=== PATIENT | male | born 1960 | race Caucasian/White ===

== ENCOUNTER 2018-05-09 20:38 | Inpatient (IN) | payer BC ==
[2018-05-10] MEDS ORDERED: ALBUTEROL/IPRATROPIUM (NEB) 3 ML AMP HHN
[2018-05-10] MEDS ORDERED: GLUCAGON 1 MG INJ IM
[2018-05-10] MEDS ORDERED: ONDANSETRON 4 MG INJ IV
[2018-05-10] MEDS ORDERED: DEXTROSE 50% 50 ML SYRINGE IV ×2
[2018-05-10] MEDS ORDERED: GLUCOSE GEL 15 GRAM TUBE PO ×2
[2018-05-10] MEDS ORDERED: GLUCOSE GEL 15 GRAM TUBE BUCCAL
[2018-05-10] MEDS: SOD CHLORIDE 0.9% 1,000 ML IV ×3 (00:05→21:51)
[2018-05-10] MEDS: ZOLPIDEM 5 MG TAB PO ×2 (00:34→21:54)
[2018-05-10 00:55] LABS: ADD MAN DIFF? NO
[2018-05-10 00:58] LABS: BASOPHILS % 0.2 % (0.0-2.0); EOSINOPHILS # 0.1 10^3/ul (0.0-0.5); EOSINOPHILS % 0.7 % (0.0-7.0); HEMATOCRIT 26.7 % (42.0-52.0); HEMOGLOBIN 8.1 g/dl (14.0-18.0); LYMPHOCYTES # 2.3 10^3/ul (0.8-2.9); LYMPHOCYTES % 21.6 % (15.0-51.0); MEAN CORPUSCULAR HGB CONC 30.3 g/dl (32.0-37.0); MEAN PLATELET VOLUME 9.5 fl (7.4-10.4); MONOCYTE # 0.7 10^3/ul (0.3-0.9); NEUTROPHIL # 7.3 10^3/ul (1.6-7.5); PLATELET COUNT 326 10^3/UL (140-415); RED BLOOD COUNT 3.38 10^6/ul (4.70-6.10); RED CELL DISTRIBUTION WIDTH 16.2 % (11.5-14.5)
[2018-05-10 00:58] LABS: WHITE BLOOD COUNT 10.5 10^3/ul (4.8-10.8)
[2018-05-10] MEDS: ACETAMINOPHEN 325 MG TAB PO (01:03)
[2018-05-10] MEDS: INSULIN ASPART [NOVOLOG] 3 ML PEN SC ×5 (01:05→21:56)
[2018-05-10 01:09] LABS: HEMOGLOBIN A1C 6.7 % (0-5.9)
[2018-05-10 01:20] LABS: ALANINE AMINOTRANSFERASE 17 IU/L (13-69); ALBUMIN 3.2 g/dl (3.3-4.9); ALBUMIN/GLOBULIN RATIO 1.03; ALKALINE PHOSPHATASE 81 IU/L (42-121); ANION GAP 8 (5-13); ASPARTATE AMINO TRANSFERASE 11 IU/L (15-46); BILIRUBIN,INDIRECT 0.1 mg/dl (0-1.1); BILIRUBIN,TOTAL 0.1 mg/dl (0.2-1.3); BLOOD UREA NITROGEN 16 mg/dl (7-20); CALCIUM 9.1 mg/dl (8.4-10.2); CARBON DIOXIDE 23 mmol/L (21-31); CHLORIDE 106 mmol/L (97-110); CHOL/HDL RATIO 7.6 RATIO; CHOLESTEROL 137 mg/dl (100-200); CREATININE 1.44 mg/dl (0.61-1.24); Estimated GFR 50 mL/min (>60); GLUCOSE 245 mg/dl (70-220); HDL CHOLESTEROL 18 mg/dl (30-78); LDL CHOLESTEROL,CALCULATED 92 mg/dl; POTASSIUM 5.1 mmol/L (3.5-5.1); SODIUM 137 mmol/L (135-144); TOTAL PROTEIN 6.3 g/dl (6.1-8.1); TRIGLYCERIDES 136 mg/dl (0-149)
[2018-05-10] MEDS: ACCU-CHEK XX (02:00)
[2018-05-10 02:02] LABS: CARCINOEMBRYONIC ANTIGEN 2.2 ng/ml (0.0-5.0)
[2018-05-10] MEDS: FAMOTIDINE 20 MG INJ IV ×2 (09:55→21:51)
[2018-05-10] MEDS: INSULIN GLARGINE [LANTus] (100 UNITS/ML) SYG SC (12:49)
[2018-05-11] MEDS: ACCU-CHEK XX (02:00)
[2018-05-11] MEDS: SOD CHLORIDE 0.9% 1,000 ML IV (05:29)
[2018-05-11] MEDS: INSULIN ASPART [NOVOLOG] 3 ML PEN SC ×6 (05:30→20:26)
[2018-05-11 06:20] LABS: ADD MAN DIFF? NO
[2018-05-11 06:28] LABS: WHITE BLOOD COUNT 10.1 10^3/ul (4.8-10.8)
[2018-05-11 06:28] LABS: BASOPHILS % 0.3 % (0.0-2.0); EOSINOPHILS # 0.1 10^3/ul (0.0-0.5); EOSINOPHILS % 1.4 % (0.0-7.0); HEMATOCRIT 26.6 % (42.0-52.0); HEMOGLOBIN 8.1 g/dl (14.0-18.0); LYMPHOCYTES # 2.2 10^3/ul (0.8-2.9); LYMPHOCYTES % 21.6 % (15.0-51.0); MEAN CORPUSCULAR HEMOGLOBIN 24.2 pg (29.0-33.0); MEAN CORPUSCULAR HGB CONC 30.5 g/dl (32.0-37.0); MEAN CORPUSCULAR VOLUME 79.4 fl (82.0-101.0); MEAN PLATELET VOLUME 10.2 fl (7.4-10.4); MONOCYTE # 0.8 10^3/ul (0.3-0.9); NEUTROPHIL # 6.9 10^3/ul (1.6-7.5); NEUTROPHILS % 68.2 % (39.0-77.0); PLATELET COUNT 345 10^3/UL (140-415); RED BLOOD COUNT 3.35 10^6/ul (4.70-6.10); RED CELL DISTRIBUTION WIDTH 15.9 % (11.5-14.5)
[2018-05-11] MEDS: FAMOTIDINE 20 MG INJ IV ×2 (07:34→20:27)
[2018-05-11 07:35] LABS: ANION GAP 7 (5-13); BLOOD UREA NITROGEN 13 mg/dl (7-20); CALCIUM 9.2 mg/dl (8.4-10.2); CARBON DIOXIDE 24 mmol/L (21-31); CHLORIDE 108 mmol/L (97-110); CREATININE 1.24 mg/dl (0.61-1.24); Estimated GFR 60 mL/min (>60); GLUCOSE 97 mg/dl (70-220); MAGNESIUM 1.8 mg/dl (1.7-2.5); PHOSPHORUS 4.4 mg/dl (2.5-4.9); POTASSIUM 3.8 mmol/L (3.5-5.1); SODIUM 139 mmol/L (135-144)
[2018-05-11] MEDS: INSULIN GLARGINE [LANTus] (100 UNITS/ML) SYG SC (07:42)
[2018-05-11] MEDS ORDERED: INSULIN GLARGINE [LANTus] (100 UNITS/ML) SYG SC (08:00)
[2018-05-11] MEDS: BISACODYL (EC) 5 MG TAB PO (14:39)
[2018-05-11] MEDS: MAGNESIUM CITRATE 300 ML BTL PO (17:00)
[2018-05-11] MEDS ORDERED: INSULIN ASPART [NOVOLOG] 3 ML PEN SC (18:00)
[2018-05-11] MEDS: POLYETHYLENE GLYCOL 3350 119 GM POWDER PO (18:44)
[2018-05-12] MEDS: ZOLPIDEM 5 MG TAB PO (00:44)
[2018-05-12] MEDS: ACCU-CHEK XX (02:00)
[2018-05-12] MEDS: POLYETHYLENE GLYCOL 3350 119 GM POWDER PO (05:50)
[2018-05-12 07:06] LABS: ANION GAP 8 (5-13); BLOOD UREA NITROGEN 11 mg/dl (7-20); CALCIUM 9.2 mg/dl (8.4-10.2); CARBON DIOXIDE 24 mmol/L (21-31); CHLORIDE 107 mmol/L (97-110); Estimated GFR > 60 mL/min (>60); GLUCOSE 159 mg/dl (70-220); POTASSIUM 4.4 mmol/L (3.5-5.1); SODIUM 139 mmol/L (135-144)
[2018-05-12] MEDS: BISACODYL (EC) 5 MG TAB PO (07:55)
[2018-05-12] MEDS: INSULIN GLARGINE [LANTus] (100 UNITS/ML) SYG SC (08:00)
[2018-05-12] MEDS: INSULIN ASPART [NOVOLOG] 3 ML PEN SC ×4 (08:04→20:35)
[2018-05-12] MEDS: FAMOTIDINE 20 MG INJ IV ×2 (08:41→20:17)
[2018-05-12] MEDS ORDERED: ONDANSETRON 4 MG INJ IV (15:30)
[2018-05-12] MEDS ORDERED: HYDROmorphONE 1 MG/5 ML IV SYRINGE IV (15:30)
[2018-05-12] MEDS ORDERED: EPHEDrine SULFATE 50 MG/5 ML SYG IV (16:30)
[2018-05-12] MEDS: ACETAMINOPHEN 325 MG TAB PO (17:56)
[2018-05-12] MEDS: HYDROmorphONE 1 MG/ML SYG IV (18:55)
[2018-05-13] MEDS: ZOLPIDEM 5 MG TAB PO (00:58)
[2018-05-13] MEDS: ACCU-CHEK XX (03:20)
[2018-05-13] MEDS: HYDROmorphONE 1 MG/ML SYG IV (03:27)
[2018-05-13] MEDS: INSULIN ASPART [NOVOLOG] 3 ML PEN SC ×4 (07:59→20:52)
[2018-05-13] MEDS: FAMOTIDINE 20 MG INJ IV (08:04)
[2018-05-13] MEDS: INSULIN GLARGINE [LANTus] (100 UNITS/ML) SYG SC (08:07)
[2018-05-13 10:07] LABS: ADD MAN DIFF? NO
[2018-05-13 10:10] LABS: WHITE BLOOD COUNT 8.6 10^3/ul (4.8-10.8)
[2018-05-13 10:10] LABS: BASOPHILS % 0.1 % (0.0-2.0); EOSINOPHILS # 0.1 10^3/ul (0.0-0.5); HEMATOCRIT 26.5 % (42.0-52.0); HEMOGLOBIN 8.2 g/dl (14.0-18.0); LYMPHOCYTES # 1.5 10^3/ul (0.8-2.9); LYMPHOCYTES % 16.8 % (15.0-51.0); MEAN CORPUSCULAR HEMOGLOBIN 23.8 pg (29.0-33.0); MEAN CORPUSCULAR HGB CONC 30.9 g/dl (32.0-37.0); MEAN PLATELET VOLUME 9.8 fl (7.4-10.4); MONOCYTE # 0.6 10^3/ul (0.3-0.9); MONOCYTES % 6.5 % (0.0-11.0); NEUTROPHIL # 6.5 10^3/ul (1.6-7.5); NEUTROPHILS % 75.3 % (39.0-77.0); PLATELET COUNT 333 10^3/UL (140-415); RED BLOOD COUNT 3.44 10^6/ul (4.70-6.10); RED CELL DISTRIBUTION WIDTH 15.9 % (11.5-14.5)
[2018-05-13 10:25] LABS: IRON 26 ug/dl (35-150)
[2018-05-13 10:27] LABS: ANION GAP 10 (5-13); BLOOD UREA NITROGEN 10 mg/dl (7-20); CARBON DIOXIDE 23 mmol/L (21-31); CHLORIDE 106 mmol/L (97-110); CREATININE 1.27 mg/dl (0.61-1.24); Estimated GFR 58 mL/min (>60); GLUCOSE 128 mg/dl (70-220); POTASSIUM 4.3 mmol/L (3.5-5.1); SODIUM 139 mmol/L (135-144)
[2018-05-13 10:35] LABS: % IRON SATURATION 9 % SAT (22-52); TOTAL IRON BINDING CAPACITY 278 ug/dl (241-421)
[2018-05-13 11:02] LABS: FERRITIN 86.5 ng/ml (11.1-264.0)
[2018-05-13] MEDS: SOD FERRIC GLUC COMPLX 125 MG in SOD CHLORIDE 0.9% 100 ML IVPB (12:44)
[2018-05-13] MEDS: FAMOTIDINE 20 MG TAB PO (20:49)
[2018-05-14] MEDS: ACCU-CHEK XX (02:00)
[2018-05-14] MEDS: ZOLPIDEM 5 MG TAB PO (02:15)
[2018-05-14] MEDS: PROPOFOL 40 ML (04:27)
[2018-05-14] MEDS: INSULIN ASPART [NOVOLOG] 3 ML PEN SC ×6 (04:28→20:57)
[2018-05-14] MEDS: LIDOCAINE 2% (SDV) 5 ML INJ (04:28)
[2018-05-14] MEDS: EPHEDrine 25 MG/5 ML SYG (04:29)
[2018-05-14] MEDS: PHENYLephrine (100 MCG/ML) 10ML SYG (04:29)
[2018-05-14] MEDS: FAMOTIDINE 20 MG TAB PO ×2 (08:07→20:53)
[2018-05-14] MEDS: INSULIN GLARGINE [LANTus] (100 UNITS/ML) SYG SC (08:40)
[2018-05-14] MEDS: SOD FERRIC GLUC COMPLX 125 MG in SOD CHLORIDE 0.9% 100 ML IVPB (13:56)
[2018-05-14] MEDS: BARIUM SULF 2% 450 ML BTL (BERRY SMOOTHIE) PO (16:00)
[2018-05-14] MEDS: IODIXANOL LOCM 100 ML BTL (17:23)
[2018-05-14] MEDS: SOD CHLORIDE 0.9% 100 ML (17:23)
[2018-05-15] MEDS: ACCU-CHEK XX (02:00)
[2018-05-15] MEDS: ZOLPIDEM 5 MG TAB PO ×2 (02:14→23:57)
[2018-05-15] MEDS: FAMOTIDINE 20 MG TAB PO ×2 (08:22→20:35)
[2018-05-15] MEDS: INSULIN ASPART [NOVOLOG] 3 ML PEN SC ×5 (08:25→20:37)
[2018-05-15] MEDS: INSULIN GLARGINE [LANTus] (100 UNITS/ML) SYG SC (08:26)
[2018-05-15] MEDS: SOD CHLORIDE 0.9% 100 ML (11:02)
[2018-05-15] MEDS: IODIXANOL LOCM 100 ML BTL (11:02)
[2018-05-15] MEDS: SOD FERRIC GLUC COMPLX 125 MG in SOD CHLORIDE 0.9% 100 ML IVPB (12:22)
[2018-05-16] MEDS: INSULIN ASPART [NOVOLOG] 3 ML PEN SC ×7 (07:59→21:00)
[2018-05-16] MEDS: INSULIN GLARGINE [LANTus] (100 UNITS/ML) SYG SC (08:00)
[2018-05-16] MEDS: FAMOTIDINE 20 MG TAB PO ×2 (08:01→21:14)
[2018-05-16] MEDS: HYDROmorphONE 1 MG/ML SYG IV (08:06)
[2018-05-16] MEDS: SOD FERRIC GLUC COMPLX 125 MG in SOD CHLORIDE 0.9% 100 ML IVPB (14:02)
[2018-05-16] MEDS: HYDROmorphONE 1 MG/ML SYG IM (21:15)
[2018-05-16] MEDS: ZOLPIDEM 5 MG TAB PO (23:53)
[2018-05-17] MEDS: INSULIN GLARGINE [LANTus] (100 UNITS/ML) SYG SC (08:46)
[2018-05-17] MEDS: FAMOTIDINE 20 MG TAB PO ×2 (08:47→20:32)
[2018-05-17] MEDS: INSULIN ASPART [NOVOLOG] 3 ML PEN SC ×7 (08:47→20:32)
[2018-05-17] MEDS: SOD FERRIC GLUC COMPLX 125 MG in SOD CHLORIDE 0.9% 100 ML IVPB (13:39)
[2018-05-17] MEDS: HYDROmorphONE 1 MG/ML SYG IV ×2 (13:41→20:38)
[2018-05-18] MEDS: ZOLPIDEM 5 MG TAB PO (00:14)
[2018-05-18] MEDS: INSULIN ASPART [NOVOLOG] 3 ML PEN SC ×7 (08:20→21:00)
[2018-05-18] MEDS: FAMOTIDINE 20 MG TAB PO ×2 (08:22→20:54)
[2018-05-18] MEDS: INSULIN GLARGINE [LANTus] (100 UNITS/ML) SYG SC (08:22)
[2018-05-18] MEDS: HYDROmorphONE 1 MG/ML SYG IV ×2 (11:08→18:02)
[2018-05-18 19:39] LABS: TROPONIN-I < 0.012 ng/ml (0.000-0.120)
[2018-05-19] MEDS: HYDROmorphONE 1 MG/ML SYG IV ×4 (00:08→22:34)
[2018-05-19] MEDS: ZOLPIDEM 5 MG TAB PO (00:08)
[2018-05-19 01:41] LABS: TROPONIN-I < 0.012 ng/ml (0.000-0.120)
[2018-05-19 05:59] LABS: ADD MAN DIFF? NO
[2018-05-19 06:05] LABS: BASOPHILS % 0.3 % (0.0-2.0); EOSINOPHILS # 0.2 10^3/ul (0.0-0.5); EOSINOPHILS % 2.5 % (0.0-7.0); HEMATOCRIT 27.5 % (42.0-52.0); HEMOGLOBIN 8.5 g/dl (14.0-18.0); LYMPHOCYTES % 28.7 % (15.0-51.0); MEAN CORPUSCULAR HEMOGLOBIN 24.6 pg (29.0-33.0); MEAN CORPUSCULAR HGB CONC 30.9 g/dl (32.0-37.0); MEAN CORPUSCULAR VOLUME 79.7 fl (82.0-101.0); MEAN PLATELET VOLUME 10.2 fl (7.4-10.4); MONOCYTE # 0.5 10^3/ul (0.3-0.9); MONOCYTES % 7.6 % (0.0-11.0); NEUTROPHIL # 4.3 10^3/ul (1.6-7.5); NEUTROPHILS % 60.3 % (39.0-77.0); PLATELET COUNT 338 10^3/UL (140-415); RED BLOOD COUNT 3.45 10^6/ul (4.70-6.10); RED CELL DISTRIBUTION WIDTH 16.5 % (11.5-14.5)
[2018-05-19 06:05] LABS: WHITE BLOOD COUNT 7.1 10^3/ul (4.8-10.8)
[2018-05-19 06:37] LABS: CHOLESTEROL 141 mg/dl (100-200)
[2018-05-19 06:37] LABS: CHOL/HDL RATIO 6.4 RATIO; HDL CHOLESTEROL 22 mg/dl (30-78); LDL CHOLESTEROL,CALCULATED 85 mg/dl; TRIGLYCERIDES 171 mg/dl (0-149)
[2018-05-19 06:41] LABS: ANION GAP 10 (5-13); BLOOD UREA NITROGEN 14 mg/dl (7-20); CALCIUM 9.4 mg/dl (8.4-10.2); CARBON DIOXIDE 26 mmol/L (21-31); CHLORIDE 102 mmol/L (97-110); CREATININE 1.14 mg/dl (0.61-1.24); Estimated GFR > 60 mL/min (>60); GLUCOSE 217 mg/dl (70-220); POTASSIUM 4.6 mmol/L (3.5-5.1); SODIUM 138 mmol/L (135-144)
[2018-05-19 06:48] LABS: TROPONIN-I < 0.012 ng/ml (0.000-0.120)
[2018-05-19] MEDS: INSULIN ASPART [NOVOLOG] 3 ML PEN SC ×7 (08:00→20:41)
[2018-05-19] MEDS: FAMOTIDINE 20 MG TAB PO ×2 (08:17→20:39)
[2018-05-19] MEDS: INSULIN GLARGINE [LANTus] (100 UNITS/ML) SYG SC (08:22)
[2018-05-19] MEDS: REGADENOSON 0.4 MG/5 ML SYG (12:16)
[2018-05-19] MEDS: HYDROCODONE/APAP (5/325) TAB PO (16:35)
[2018-05-19] MEDS: PEG/ELECTROLYTES 4L BTL PO (17:58)
[2018-05-20] MEDS: ZOLPIDEM 5 MG TAB PO (01:14)
[2018-05-20] MEDS ORDERED: ROCURONIUM 50 MG INJ ×2 (07:00→15:32)
[2018-05-20] MEDS ORDERED: SEVOFLURANE 15 MIN (07:00)
[2018-05-20] MEDS ORDERED: EPHEDrine SULFATE 50 MG/5 ML SYG (07:00)
[2018-05-20] MEDS: FAMOTIDINE 20 MG TAB PO ×2 (07:47→21:00)
[2018-05-20] MEDS: INSULIN GLARGINE [LANTus] (100 UNITS/ML) SYG SC (08:00)
[2018-05-20] MEDS: INSULIN ASPART [NOVOLOG] 3 ML PEN SC ×7 (08:00→21:00)
[2018-05-20] MEDS: HYDROmorphONE 1 MG/ML SYG IV ×2 (09:30→14:16)
[2018-05-20] MEDS: SOD CHLORIDE 0.9% 1,000 ML IV ×2 (10:13→20:00)
[2018-05-20] MEDS ORDERED: FENTAnyl 50 MCG/ML VIAL (15:32)
[2018-05-20] MEDS ORDERED: PROPOFOL 20 ML (15:32)
[2018-05-20] MEDS ORDERED: MIDAZOLAM 1 MG/ML 2 ML INJ (15:32)
[2018-05-20 15:56] LABS: PLATELET COUNT 339 10^3/UL (140-415)
[2018-05-20] MEDS: CEFAZOLIN 1 GM INJ (16:06)
[2018-05-20] MEDS ORDERED: PHENYLephrine (100 MCG/ML) 5ML SYG (16:25)
[2018-05-20] MEDS: LIDOCAINE 1% (MPF) 30 ML INJ (17:01)
[2018-05-20] MEDS: BUPIVACAINE 0.5%/EPI (SDV) 30 ML INJ (17:01)
[2018-05-20] MEDS ORDERED: ROPIVACAINE 0.2% 20 ML VIAL (17:09)
[2018-05-20 17:11] LABS: IMMEDIATE SPIN CROSSMATCH 1 4
[2018-05-20] MEDS ORDERED: metroNIDAZOLE 500 MG/NS (PMX) 100 ML IVPB (17:26)
[2018-05-20 18:17] LABS: INR 1.04; PROTIME 13.7 Sec (11.9-14.9); PT RATIO 1.1
[2018-05-20 18:18] LABS: PARTIAL THROMBOPLASTIN TIME 38.2 Sec (23.0-35.0); THROMBIN TIME 14.2 SEC (13.8-19.1)
[2018-05-20] MEDS: metroNIDAZOLE 500 MG/NS (PMX) 100 ML IVPB (18:30)
[2018-05-20] MEDS ORDERED: ACETAMINOPHEN 325 MG TAB PO (18:30)
[2018-05-20] MEDS: CEFAZOLIN 2 GM/50 ML (PMX) 50 ML IVPB (18:30)
[2018-05-20] MEDS ORDERED: morphine 2 MG INJ IV ×5 (18:30→21:00)
[2018-05-20] MEDS ORDERED: morphine SULFATE/PF (10 MG/10 ML) INJ (18:46)
[2018-05-20] MEDS ORDERED: HYDROmorphONE 0.5 MG/0.5 ML SYG IV ×4 (19:00→21:00)
[2018-05-20] MEDS ORDERED: NALOXONE (0.4 MG/ML) INJ IV ×2 (19:00→21:00)
[2018-05-20] MEDS ORDERED: NALBUPHINE HCL (10 MG/1 ML) INJ IV ×2 (19:00→21:00)
[2018-05-20] MEDS ORDERED: DIPHENHYDRAMINE 50 MG INJ IV ×3 (19:00→21:00)
[2018-05-20] MEDS ORDERED: ONDANSETRON 4 MG INJ IV ×3 (19:00→21:00)
[2018-05-20 19:19] LABS: AADO2 Arterial 474.9 mmHg (7.0-24.0); Arterial Base Excess -5.3 mmol/L (-3.0-3); Arterial Blood Gas Oxygen Sat 98.9 mmHG (95.0-98.0); Arterial COHb 0.2 % (0.0-3.0); Arterial Fraction of Oxyhgb 98.5 % (93.0-99.0); Arterial HCO3 20.8 mmol/L (22.0-26.0); Arterial MetHb 0.2 % (0.0-1.5); Arterial pCO2 42.5 mmhg (35-45); MODE VENT - AC; Site A-Line
[2018-05-20] MEDS ORDERED: ALBUMIN HUMAN 5% 250 ML ×2 (19:52→20:23)
[2018-05-20] MEDS ORDERED: KETOROLAC 30 MG INJ IV (21:00)
[2018-05-20] MEDS ORDERED: FENTAnyl 50 MCG/ML VIAL IV ×3 (21:00)
[2018-05-20] MEDS ORDERED: LABETALOL HCL 20MG INJ IV (21:00)
[2018-05-20] MEDS ORDERED: ALBUMIN HUMAN 5% 250 ML IV (21:00)
[2018-05-20] MEDS ORDERED: ZOLPIDEM 5 MG TAB PO (21:00)
[2018-05-20] MEDS ORDERED: KETOROLAC 15 MG INJ IV (21:00)
[2018-05-20] MEDS ORDERED: TRIMETHOBENZAMIDE 100 MG/ML VIAL IM (21:00)
[2018-05-20] MEDS ORDERED: HYDROmorphONE 1 MG/5 ML IV SYRINGE IV ×3 (21:00)
[2018-05-20] MEDS ORDERED: ACETAMINOPHEN 500 MG TAB PO (21:00)
[2018-05-20] MEDS ORDERED: EPHEDrine SULFATE 50 MG/5 ML SYG IV (21:00)
[2018-05-20] MEDS ORDERED: METOCLOPRAMIDE 10 MG INJ IV (21:00)
[2018-05-20] MEDS ORDERED: MEPERIDINE 25 MG INJ IV (21:00)
[2018-05-20] MEDS ORDERED: HYDROCODONE/APAP (5/325) TAB PO (21:00)
[2018-05-20] MEDS ORDERED: METOCLOPRAMIDE 10 MG INJ (21:11)
[2018-05-20] MEDS ORDERED: SUGAMMADEX SODIUM 200 MG/2 ML VIAL IV (21:11)
[2018-05-20] MEDS ORDERED: ONDANSETRON 4 MG INJ (21:11)
[2018-05-20] MEDS ORDERED: DEXAMETHASONE 4 MG/ML 5 ML INJ (21:11)
[2018-05-20] MEDS ORDERED: ROPIVACAINE 0.5 % 30 ML VIAL (21:20)
[2018-05-20] MEDS: FENTAnyl 2MCG/ML-ROPIV 0.2% 100 ML BAG EPI (23:07)
[2018-05-21 00:03] LABS: ADD UMIC NO; UR ASCORBIC ACID NEGATIVE (NEGATIVE); UR BILIRUBIN (Dip) NEGATIVE (NEGATIVE); UR BLOOD (Dip) NEGATIVE (NEGATIVE); UR CLARITY CLEAR (CLEAR); UR COLOR STRAW (YELLOW); UR GLUCOSE (Dip) 1+ mg/dL (NEGATIVE); UR KETONES (Dip) NEGATIVE (NEGATIVE); UR LEUKOCYTE ESTERASE (Dip) NEGATIVE Leu/ul (NEGATIVE); UR NITRITE (Dip) NEGATIVE (NEGATIVE); UR SPECIFIC GRAVITY (Dip) 1.008 (1.003-1.030); UR TOTAL PROTEIN (Dip) NEGATIVE (NEGATIVE); UR UROBILINOGEN (Dip) NEGATIVE (NEGATIVE)
[2018-05-21] MEDS: SOD CHLORIDE 0.9% 1,000 ML IV ×2 (00:38→12:28)
[2018-05-21] MEDS: INSULIN ASPART [NOVOLOG] 3 ML PEN SC ×9 (01:08→21:00)
[2018-05-21] MEDS: CEFAZOLIN 2 GM/50 ML (PMX) 50 ML IVPB ×2 (01:09→10:03)
[2018-05-21] MEDS: ONDANSETRON 4 MG INJ IV ×2 (01:31→18:58)
[2018-05-21] MEDS: metroNIDAZOLE 500 MG/NS (PMX) 100 ML IVPB ×2 (01:42→12:25)
[2018-05-21 06:04] LABS: ADD MAN DIFF? NO
[2018-05-21 06:09] LABS: WHITE BLOOD COUNT 10.7 10^3/ul (4.8-10.8)
[2018-05-21 06:09] LABS: BASOPHILS % 0.1 % (0.0-2.0); HEMATOCRIT 32.9 % (42.0-52.0); HEMOGLOBIN 10.1 g/dl (14.0-18.0); LYMPHOCYTES # 0.7 10^3/ul (0.8-2.9); LYMPHOCYTES % 6.1 % (15.0-51.0); MEAN CORPUSCULAR HEMOGLOBIN 24.9 pg (29.0-33.0); MEAN CORPUSCULAR HGB CONC 30.7 g/dl (32.0-37.0); MEAN PLATELET VOLUME 10.3 fl (7.4-10.4); MONOCYTE # 0.3 10^3/ul (0.3-0.9); MONOCYTES % 2.3 % (0.0-11.0); NEUTROPHIL # 9.7 10^3/ul (1.6-7.5); PLATELET COUNT 313 10^3/UL (140-415); RED BLOOD COUNT 4.06 10^6/ul (4.70-6.10); RED CELL DISTRIBUTION WIDTH 16.5 % (11.5-14.5)
[2018-05-21 06:48] LABS: ANION GAP 12 (5-13); BLOOD UREA NITROGEN 13 mg/dl (7-20); CALCIUM 8.2 mg/dl (8.4-10.2); CARBON DIOXIDE 21 mmol/L (21-31); CHLORIDE 103 mmol/L (97-110); CREATININE 1.01 mg/dl (0.61-1.24); Estimated GFR > 60 mL/min (>60); GLUCOSE 266 mg/dl (70-220); POTASSIUM 4.8 mmol/L (3.5-5.1); SODIUM 136 mmol/L (135-144)
[2018-05-21] MEDS: CELECOXIB 200 MG CAP PO (09:00)
[2018-05-21] MEDS: FAMOTIDINE 20 MG INJ IV (09:43)
[2018-05-21] MEDS: INSULIN GLARGINE [LANTus] (100 UNITS/ML) SYG SC (09:47)
[2018-05-21] MEDS: FENTAnyl 2MCG/ML-ROPIV 0.2% 100 ML BAG EPI ×2 (10:03→21:36)
[2018-05-21] MEDS: PHENOL 1.4% SOLN 180 ML BTL MT (19:36)
[2018-05-21] MEDS: HYDROmorphONE 1 MG/ML SYG IV (22:23)
[2018-05-22] MEDS: SOD CHLORIDE 0.9% 1,000 ML IV ×2 (00:36→10:17)
[2018-05-22] MEDS: INSULIN ASPART [NOVOLOG] 3 ML PEN SC ×9 (00:36→20:37)
[2018-05-22] MEDS: HYDROmorphONE 1 MG/ML SYG IV (05:09)
[2018-05-22] MEDS: CELECOXIB 200 MG CAP PO (07:58)
[2018-05-22] MEDS: FAMOTIDINE 20 MG INJ IV (08:18)
[2018-05-22] MEDS: HYDROmorphONE 0.5 MG/0.5 ML SYG IV ×3 (08:45→17:38)
[2018-05-22] MEDS ORDERED: FENTAnyl 2MCG/ML-ROPIV 0.2% 100 ML BAG EPI (10:30)
[2018-05-22] MEDS ORDERED: NALOXONE (0.4 MG/ML) INJ IV (10:30)
[2018-05-22] MEDS: FENTAnyl 2MCG/ML-ROPIV 0.2% 100 ML BAG EPI ×2 (10:53→21:17)
[2018-05-22] MEDS: ONDANSETRON 4 MG INJ IV (12:08)
[2018-05-22] MEDS: INSULIN GLARGINE [LANTus] (100 UNITS/ML) SYG SC (12:35)
[2018-05-23] MEDS: HYDROmorphONE 0.5 MG/0.5 ML SYG IV (00:06)
[2018-05-23] MEDS: INSULIN ASPART [NOVOLOG] 3 ML PEN SC ×9 (01:00→21:00)
[2018-05-23] MEDS: SOD CHLORIDE 0.9% 1,000 ML IV ×2 (03:11→21:26)
[2018-05-23 04:59] LABS: ADD MAN DIFF? NO
[2018-05-23 05:06] LABS: BASOPHILS % 0.2 % (0.0-2.0); EOSINOPHILS # 0.1 10^3/ul (0.0-0.5); HEMATOCRIT 29.7 % (42.0-52.0); HEMOGLOBIN 9.3 g/dl (14.0-18.0); LYMPHOCYTES % 22.8 % (15.0-51.0); MEAN CORPUSCULAR HEMOGLOBIN 25.2 pg (29.0-33.0); MEAN CORPUSCULAR HGB CONC 31.3 g/dl (32.0-37.0); MEAN CORPUSCULAR VOLUME 80.5 fl (82.0-101.0); MEAN PLATELET VOLUME 10.1 fl (7.4-10.4); MONOCYTE # 0.4 10^3/ul (0.3-0.9); NEUTROPHIL # 6.2 10^3/ul (1.6-7.5); NEUTROPHILS % 70.3 % (39.0-77.0); PLATELET COUNT 291 10^3/UL (140-415); RED BLOOD COUNT 3.69 10^6/ul (4.70-6.10); RED CELL DISTRIBUTION WIDTH 16.8 % (11.5-14.5)
[2018-05-23 05:06] LABS: WHITE BLOOD COUNT 8.8 10^3/ul (4.8-10.8)
[2018-05-23 05:18] LABS: ANION GAP 9 (5-13); BLOOD UREA NITROGEN 11 mg/dl (7-20); CALCIUM 8.7 mg/dl (8.4-10.2); CARBON DIOXIDE 23 mmol/L (21-31); CHLORIDE 106 mmol/L (97-110); CREATININE 1.07 mg/dl (0.61-1.24); Estimated GFR > 60 mL/min (>60); GLUCOSE 95 mg/dl (70-220); SODIUM 138 mmol/L (135-144)
[2018-05-23] MEDS: FENTAnyl 2MCG/ML-ROPIV 0.2% 100 ML BAG EPI ×2 (07:48→18:57)
[2018-05-23] MEDS: CELECOXIB 200 MG CAP PO (07:57)
[2018-05-23] MEDS: INSULIN GLARGINE [LANTus] (100 UNITS/ML) SYG SC (09:42)
[2018-05-23] MEDS: ZOLPIDEM 5 MG TAB PO (21:25)
[2018-05-23] MEDS: ONDANSETRON 4 MG INJ IV ×2 (23:42→23:50)
[2018-05-23] MEDS: PHENOL 1.4% SOLN 180 ML BTL MT (23:50)
[2018-05-24] MEDS: HYDROmorphONE 1 MG/ML SYG IV ×5 (00:44→23:08)
[2018-05-24] MEDS: INSULIN ASPART [NOVOLOG] 3 ML PEN SC ×9 (01:00→21:00)
[2018-05-24] MEDS: FENTAnyl 2MCG/ML-ROPIV 0.2% 100 ML BAG EPI ×3 (02:41→19:59)
[2018-05-24] MEDS: ONDANSETRON 4 MG INJ IV ×2 (05:41→17:40)
[2018-05-24] MEDS: SOD CHLORIDE 0.9% 1,000 ML IV (17:32)
[2018-05-24] MEDS: PHENOL 1.4% SOLN 180 ML BTL MT (21:48)
[2018-05-24] MEDS: ZOLPIDEM 5 MG TAB PO (22:03)
[2018-05-25] MEDS: INSULIN ASPART [NOVOLOG] 3 ML PEN SC ×8 (01:00→21:00)
[2018-05-25] MEDS: HYDROmorphONE 1 MG/ML SYG IV ×5 (03:46→23:11)
[2018-05-25] MEDS: FENTAnyl 2MCG/ML-ROPIV 0.2% 100 ML BAG EPI ×3 (05:14→22:09)
[2018-05-25 05:22] LABS: ADD MAN DIFF? NO
[2018-05-25 05:43] LABS: BASOPHILS % 0.2 % (0.0-2.0); EOSINOPHILS # 0.2 10^3/ul (0.0-0.5); EOSINOPHILS % 2.2 % (0.0-7.0); HEMATOCRIT 33.1 % (42.0-52.0); HEMOGLOBIN 10.1 g/dl (14.0-18.0); LYMPHOCYTES # 2.1 10^3/ul (0.8-2.9); LYMPHOCYTES % 25.9 % (15.0-51.0); MEAN CORPUSCULAR HEMOGLOBIN 24.9 pg (29.0-33.0); MEAN CORPUSCULAR HGB CONC 30.5 g/dl (32.0-37.0); MEAN CORPUSCULAR VOLUME 81.7 fl (82.0-101.0); MEAN PLATELET VOLUME 9.7 fl (7.4-10.4); MONOCYTE # 0.5 10^3/ul (0.3-0.9); MONOCYTES % 5.6 % (0.0-11.0); NEUTROPHIL # 5.2 10^3/ul (1.6-7.5); NEUTROPHILS % 65.4 % (39.0-77.0); PLATELET COUNT 354 10^3/UL (140-415); RED BLOOD COUNT 4.05 10^6/ul (4.70-6.10); RED CELL DISTRIBUTION WIDTH 16.8 % (11.5-14.5)
[2018-05-25] MEDS: ONDANSETRON 4 MG INJ IV ×2 (06:14→12:38)
[2018-05-25 06:37] LABS: ALANINE AMINOTRANSFERASE 10 IU/L (13-69); ALBUMIN 3.3 g/dl (3.3-4.9); ALKALINE PHOSPHATASE 76 IU/L (42-121); ANION GAP 14 (5-13); ASPARTATE AMINO TRANSFERASE 14 IU/L (15-46); BILIRUBIN,INDIRECT 0.1 mg/dl (0-1.1); BILIRUBIN,TOTAL 0.1 mg/dl (0.2-1.3); BLOOD UREA NITROGEN 11 mg/dl (7-20); CALCIUM 9.1 mg/dl (8.4-10.2); CARBON DIOXIDE 19 mmol/L (21-31); CHLORIDE 104 mmol/L (97-110); CREATININE 0.91 mg/dl (0.61-1.24); Estimated GFR > 60 mL/min (>60); GLUCOSE 103 mg/dl (70-220); POTASSIUM 4.3 mmol/L (3.5-5.1); SODIUM 137 mmol/L (135-144); TOTAL PROTEIN 6.6 g/dl (6.1-8.1)
[2018-05-25 06:41] LABS: MAGNESIUM 1.6 mg/dl (1.7-2.5)
[2018-05-25 06:41] LABS: PHOSPHORUS 4.1 mg/dl (2.5-4.9)
[2018-05-25] MEDS: INSULIN GLARGINE [LANTus] (100 UNITS/ML) SYG SC (08:00)
[2018-05-25] MEDS: MAGNESIUM SULFATE 2 GM/50 ML 50 ML IVPB (12:01)
[2018-05-25] MEDS: DIATR MEGLU/DIATRIZOATE SODIUM 120 ML BTL (15:16)
[2018-05-25] MEDS: SOD CHLORIDE 0.9% 1,000 ML IV (21:14)
[2018-05-25] MEDS: ZOLPIDEM 5 MG TAB PO (23:21)
[2018-05-26] MEDS: INSULIN ASPART [NOVOLOG] 3 ML PEN SC ×6 (01:00→21:00)
[2018-05-26] MEDS: HYDROmorphONE 1 MG/ML SYG IV ×3 (03:12→10:56)
[2018-05-26] MEDS: FENTAnyl 2MCG/ML-ROPIV 0.2% 100 ML BAG EPI (05:04)
[2018-05-26 05:18] LABS: ADD MAN DIFF? NO
[2018-05-26 05:27] LABS: BASOPHILS % 0.3 % (0.0-2.0); EOSINOPHILS # 0.2 10^3/ul (0.0-0.5); EOSINOPHILS % 1.8 % (0.0-7.0); HEMATOCRIT 33.1 % (42.0-52.0); HEMOGLOBIN 10.2 g/dl (14.0-18.0); LYMPHOCYTES # 1.7 10^3/ul (0.8-2.9); LYMPHOCYTES % 18.6 % (15.0-51.0); MEAN CORPUSCULAR HEMOGLOBIN 24.9 pg (29.0-33.0); MEAN CORPUSCULAR HGB CONC 30.8 g/dl (32.0-37.0); MEAN CORPUSCULAR VOLUME 80.7 fl (82.0-101.0); MEAN PLATELET VOLUME 9.6 fl (7.4-10.4); MONOCYTE # 0.6 10^3/ul (0.3-0.9); MONOCYTES % 7.2 % (0.0-11.0); NEUTROPHIL # 6.4 10^3/ul (1.6-7.5); NEUTROPHILS % 71.5 % (39.0-77.0); PLATELET COUNT 364 10^3/UL (140-415); RED CELL DISTRIBUTION WIDTH 16.7 % (11.5-14.5)
[2018-05-26 05:27] LABS: WHITE BLOOD COUNT 8.9 10^3/ul (4.8-10.8)
[2018-05-26] MEDS: ONDANSETRON 4 MG INJ IV (06:49)
[2018-05-26] MEDS ORDERED: morphine SULFATE/PF (10 MG/10 ML) INJ (07:48)
[2018-05-26] MEDS: morphine 2 MG INJ IV ×2 (15:56→21:20)
[2018-05-26] MEDS: KETOROLAC 15 MG INJ IV (17:54)
[2018-05-27] MEDS: ZOLPIDEM 5 MG TAB PO (00:48)
[2018-05-27] MEDS: morphine 2 MG INJ IV ×2 (01:45→08:53)
[2018-05-27] MEDS: INSULIN ASPART [NOVOLOG] 3 ML PEN SC ×4 (08:49→20:55)
[2018-05-27 10:12] LABS: ADD MAN DIFF? NO
[2018-05-27 10:28] LABS: WHITE BLOOD COUNT 8.6 10^3/ul (4.8-10.8)
[2018-05-27 10:28] LABS: BASOPHILS % 0.3 % (0.0-2.0); EOSINOPHILS # 0.3 10^3/ul (0.0-0.5); EOSINOPHILS % 3.1 % (0.0-7.0); HEMATOCRIT 33.8 % (42.0-52.0); HEMOGLOBIN 10.5 g/dl (14.0-18.0); LYMPHOCYTES # 1.2 10^3/ul (0.8-2.9); LYMPHOCYTES % 13.4 % (15.0-51.0); MEAN CORPUSCULAR HEMOGLOBIN 24.8 pg (29.0-33.0); MEAN CORPUSCULAR HGB CONC 31.1 g/dl (32.0-37.0); MEAN CORPUSCULAR VOLUME 79.9 fl (82.0-101.0); MEAN PLATELET VOLUME 9.8 fl (7.4-10.4); MONOCYTE # 0.5 10^3/ul (0.3-0.9); MONOCYTES % 5.2 % (0.0-11.0); NEUTROPHIL # 6.7 10^3/ul (1.6-7.5); NEUTROPHILS % 77.5 % (39.0-77.0); PLATELET COUNT 343 10^3/UL (140-415); RED BLOOD COUNT 4.23 10^6/ul (4.70-6.10); RED CELL DISTRIBUTION WIDTH 17.1 % (11.5-14.5)
[2018-05-27 10:42] LABS: MAGNESIUM 1.5 mg/dl (1.7-2.5)
[2018-05-27 10:42] LABS: PHOSPHORUS 3.4 mg/dl (2.5-4.9)
[2018-05-27] MEDS: MAGNESIUM SULFATE 2 GM/50 ML 50 ML IVPB (14:25)
[2018-05-27] MEDS: HYDROCODONE/APAP (5/325) TAB PO ×2 (14:45→21:03)
[2018-05-27] MEDS: KETOROLAC 15 MG INJ IV (15:48)
[2018-05-27] MEDS: HYDROmorphONE 1 MG/ML SYG IV (16:56)
[2018-05-27] MEDS: NACL 0.9% 3 ML SYG IV (21:04)
[2018-05-28] MEDS: ZOLPIDEM 5 MG TAB PO (00:39)
[2018-05-28] MEDS: morphine 2 MG INJ IV (02:17)
[2018-05-28 05:06] LABS: ADD MAN DIFF? NO
[2018-05-28 05:07] LABS: WHITE BLOOD COUNT 8.8 10^3/ul (4.8-10.8)
[2018-05-28 05:07] LABS: BASOPHILS % 0.2 % (0.0-2.0); EOSINOPHILS # 0.3 10^3/ul (0.0-0.5); HEMATOCRIT 32.3 % (42.0-52.0); HEMOGLOBIN 10.1 g/dl (14.0-18.0); LYMPHOCYTES # 1.2 10^3/ul (0.8-2.9); LYMPHOCYTES % 13.5 % (15.0-51.0); MEAN CORPUSCULAR HEMOGLOBIN 24.8 pg (29.0-33.0); MEAN CORPUSCULAR HGB CONC 31.3 g/dl (32.0-37.0); MEAN CORPUSCULAR VOLUME 79.2 fl (82.0-101.0); MEAN PLATELET VOLUME 9.9 fl (7.4-10.4); MONOCYTE # 0.3 10^3/ul (0.3-0.9); MONOCYTES % 3.4 % (0.0-11.0); NEUTROPHILS % 79.4 % (39.0-77.0); PLATELET COUNT 357 10^3/UL (140-415); RED BLOOD COUNT 4.08 10^6/ul (4.70-6.10)
[2018-05-28] MEDS: KETOROLAC 15 MG INJ IV ×2 (07:40→14:04)
[2018-05-28] MEDS: INSULIN ASPART [NOVOLOG] 3 ML PEN SC ×4 (09:18→22:00)
[2018-05-28] MEDS: POLYETHYLENE GLYCOL 17 GM PACKET PO (18:44)
[2018-05-28] MEDS: IBUPROFEN 600 MG TAB PO (20:24)
[2018-05-29 05:40] LABS: ADD MAN DIFF? NO
[2018-05-29 05:50] LABS: WHITE BLOOD COUNT 5.4 10^3/ul (4.8-10.8)
[2018-05-29 05:50] LABS: BASOPHILS % 0.4 % (0.0-2.0); EOSINOPHILS # 0.3 10^3/ul (0.0-0.5); EOSINOPHILS % 6.3 % (0.0-7.0); HEMATOCRIT 30.5 % (42.0-52.0); HEMOGLOBIN 9.8 g/dl (14.0-18.0); LYMPHOCYTES # 1.4 10^3/ul (0.8-2.9); LYMPHOCYTES % 26.3 % (15.0-51.0); MEAN CORPUSCULAR HEMOGLOBIN 25.5 pg (29.0-33.0); MEAN CORPUSCULAR HGB CONC 32.1 g/dl (32.0-37.0); MEAN CORPUSCULAR VOLUME 79.4 fl (82.0-101.0); MEAN PLATELET VOLUME 10.3 fl (7.4-10.4); MONOCYTE # 0.4 10^3/ul (0.3-0.9); MONOCYTES % 6.9 % (0.0-11.0); NEUTROPHIL # 3.2 10^3/ul (1.6-7.5); NEUTROPHILS % 59.9 % (39.0-77.0); PLATELET COUNT 285 10^3/UL (140-415); RED BLOOD COUNT 3.84 10^6/ul (4.70-6.10); RED CELL DISTRIBUTION WIDTH 16.9 % (11.5-14.5)
[2018-05-29 06:09] LABS: PHOSPHORUS 3.9 mg/dl (2.5-4.9)
[2018-05-29 06:09] LABS: MAGNESIUM 1.7 mg/dl (1.7-2.5)
[2018-05-29] MEDS: INSULIN ASPART [NOVOLOG] 3 ML PEN SC ×5 (07:20→21:00)
[2018-05-29] MEDS: IBUPROFEN 600 MG TAB PO ×2 (09:05→17:50)
[2018-05-29] MEDS: INSULIN GLARGINE [LANTus] (100 UNITS/ML) SYG SC (10:31)
[2018-05-29] MEDS: KETOROLAC 15 MG INJ IV (10:31)
[2018-05-29] MEDS: morphine 2 MG INJ IV ×2 (13:16→21:10)
[2018-05-29] MEDS: POLYETHYLENE GLYCOL 17 GM PACKET PO (13:45)
[2018-05-30] MEDS: ZOLPIDEM 5 MG TAB PO (00:17)
[2018-05-30] MEDS: HYDROCODONE/APAP (5/325) TAB PO ×2 (00:22→16:00)
[2018-05-30] MEDS: morphine 2 MG INJ IV (06:49)
[2018-05-30] MEDS: INSULIN ASPART [NOVOLOG] 3 ML PEN SC ×3 (09:08→18:11)
[2018-05-30] MEDS: INSULIN GLARGINE [LANTus] (100 UNITS/ML) SYG SC (09:09)
[2018-05-30] MEDS: POLYETHYLENE GLYCOL 17 GM PACKET PO (09:09)
[2018-05-30] MEDS: SOD FERRIC GLUC COMPLX 125 MG in SOD CHLORIDE 0.9% 100 ML IVPB (13:50)
== END 2018-05-30 18:50 | disposition home or self-care (01) | DRG 330 ==
LOC: 2NE 05-13 16:02 → MS1 05-21 00:23 → 6WM 20:38 → 2NE 05-13 19:40
PROC: 0DTL0ZZ Resection of Transverse Colon, Open Approach (ICD-10-PCS; principal; 2018-05-12 14:10)
PROC: 0DN80ZZ Release Small Intestine, Open Approach (ICD-10-PCS; 2018-05-12 14:10)
PROC: 0DNE0ZZ Release Large Intestine, Open Approach (ICD-10-PCS; 2018-05-12 14:10)
PROC: 0DNU0ZZ Release Omentum, Open Approach (ICD-10-PCS; 2018-05-12 14:10)
PROC: 0DN84ZZ Release Small Intestine, Percutaneous Endoscopic Approach (ICD-10-PCS; 2018-05-12 14:10)
PROC: 0DBL8ZX Excision of Transverse Colon, Via Natural or Artificial Opening Endoscopic, Diagnostic (ICD-10-PCS; 2018-05-12 14:10)
PROC: 0WQF0ZZ Repair Abdominal Wall, Open Approach (ICD-10-PCS; 2018-05-12 14:10)
PROC: 0DU Gastrointestinal System, Supplement (ICD-10-PCS; 2018-05-12 14:10)
PROC: 00HU33Z Insertion of Infusion Device into Spinal Canal, Percutaneous Approach (ICD-10-PCS; 2018-05-12 14:10)
PROC: 3E0R3BZ Introduction of Anesthetic Agent into Spinal Canal, Percutaneous Approach (ICD-10-PCS; 2018-05-12 14:10)
PROC: 30233N1 Transfusion of Nonautologous Red Blood Cells into Peripheral Vein, Percutaneous Approach (ICD-10-PCS; 2018-05-12 14:10)
DX: C18.4 Malignant neoplasm of transverse colon (principal); K62.5 Hemorrhage of anus and rectum; K43.9 Ventral hernia without obstruction or gangrene; F17.200 Nicotine dependence, unspecified, uncomplicated; R63.4 Abnormal weight loss; Z68.23 Body mass index [BMI] 23.0-23.9, adult; D50.9 Iron deficiency anemia, unspecified; I25.10 Atherosclerotic heart disease of native coronary artery without angina pectoris; I12.9 Hypertensive chronic kidney disease with stage 1 through stage 4 chronic kidney disease, or unspecified chronic kidney disease; N18.2 Chronic kidney disease, stage 2 (mild); E78.5 Hyperlipidemia, unspecified; E10.22 Type 1 diabetes mellitus with diabetic chronic kidney disease; E10.65 Type 1 diabetes mellitus with hyperglycemia
CPT/HCPCS: 36430; 36600; 71260; 74018; 74177; 74250; 76775; 78306; 78452; 80048; 80053; 80061; 81003; 82378; 82728; 82803; 82962; 83036; 83540; 83735; 84100; 84484; 85025; 85049; 85610; 85670; 85730; 86850; 86900; 86901; 86920; 87086; 88304; 88305; 88309; 90686; 93005; 93017; 93306; 93971; 97161; A9503